=== PATIENT | male | born 1980 ===

== ENCOUNTER 2025-04-11 08:40 | Outpatient (AMB) | payer OTHER, SELFPAY ==
--- NOTE | 2025-04-11 08:42 | MHC.PC.OV ---
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 care Intake Note: patient here for new patient visit Hotel Security Officer Required: No Allergies No Known Allergies Allergy (Verified 04/11/25 09:04) Medication List - Last Reconciled 04/11/25 by Deng Wellington CNP No Known Home Meds Tobacco use date assessed: 04/11/25 Dental Screening Dental Screen Date: 04/11/25 Did you have a dental visit in the last 12 months?: Yes Did you have a dental problem in the last 6 months where you did not have access to dental care?: No Was dental information given to patient?: Patient has dentist HPI HPI Comments History of Present Illness Details 44-year-old male presents to establish care. He is not on prescription medication. He reports painless umbilical hernia for the past 2 years. Requests referral to a specialist for evaluation. Prior PCP? - Dr. Ortiz, [facility] Last office visit/CPE/labs - 1.5 year Acute issue(s) - None Past Medical History - Umbilical hernia Surgical History - Left inguinal hernia repair Family History - Denes Social History - Smokes 12 cigarettes daily, smoking hx x 15 years. Does not vape. Drinks 4-5 drinks of beers/liquor 4 days weekly. Smokes 3 joints daily 7 days weekly - Has been making healthy dietary choices. Exercises routinely. Generally sleep well Health maintenance - Last eye exam was 3 years ago. Declines ophthalmology referral - Last dental visit was 4 months ago. - Last Tdap maybe 5 years ago. - Has not been vaccinated for the flu this season; declines vaccination Specialists - None PFSH Surgical History (Updated 04/11/25 @ 08:54 by Jo-Ann Blanchard MA) History of hernia repair Social History Housing: House Patient Tobacco Use Status: Current everyday Tobacco user Tobacco use type: Cigarette Cigarettes Per Day: 12 Years Smoked: 15 e-Cigarette/Vaping Use: Never Used Second Hand Smoke Exposure: Yes Substance Use Type: Marijuana service: No Current occupational status: employed Current occupation: [employer] Current occupational exposures/hazards: No Cognitive needs: No Hearing needs: No Vision needs: No Questionnaire PHQ-9 Over the last 2 weeks, how often have you been bothered by any of the following problems? 1. Little interest or pleasure in doing things: not at all 2. Feeling down, depressed, or hopeless: not at all 3. Trouble falling or staying asleep, or sleeping too much: not at all 4. Feeling tired or having little energy: not at all 5. Poor appetite or overeating: not at all 6. Feeling bad about yourself - or that you are a failure or have let yourself or your family down: not at all 7. Trouble concentrating on things, such as reading the newspaper or watching television: not at all 8. Moving or speaking so slowly that other people could have noticed. Or the opposite - being so fidgety or restless that you have been moving around a lot more than usual: not at all 9. Thoughts that you would be better off or of hurting yourself in some way: not at all Total score: 0 Depression Screening Interpretation: Negative Depression Screening Done: Yes 76484 - PHQ-9 Billing: Yes Source: Developed by Drs. Baldemar Andrea, Almita Maxwell, Lei Coleman and colleagues, with an educational meli from [employer]. Thrive Questionnaire I am a: Patient What is your living situation today?: I have a steady place to live Within the past 12 months, did the food you bought not last and you didn't have the money to get more?: Often true Within the past 12 months, did you worry whether your food would run out before you got money to buy more?: Often true Do you have trouble paying for medicines?: Yes Do you have trouble getting transportation to medical appointments?: No Do you have trouble paying your heating and electricity bill?: Yes Do you have trouble taking care of your child, family member or friend?: No Do you have trouble with day-to-day activities such as bathing, preparing meals, shopping, managing finances, etc.?: No Are you currently unemployed and looking for a job?: No Are you interested in more education?: No Please select the resources that you would like help with: None Currently or been in a relationship where the following occur: No concerns reported THRIVE Score: 3 AUDIT C Alcohol Use Questionnaire (AUDIT-C) 1. How often do you have a drink containing alcohol?: 2-3 times a week 2. How many drinks containing alcohol do you have on a typical day when you are drinking?: 3 or 4 3. How often do you have six or more drinks on one occasion?: Weekly Total Score: 7 Score Reviewed/Action Taken: Yes RILEY-7 AMB Questionnaire RILEY-7 Date RILEY - 7 assessed: 04/11/25 Feeling nervous, anxious, or on edge: 0 = Not at all Not being able to stop or control worryin = Not at all Worrying too much about different things: 0 = Not at all Trouble relaxin = Not at all Being so restless that it is hard to sit still: 0 = Not at all Becoming easily annoyed or irritable: 3 = Nearly every day Feeling afraid as if something awful might happen: 0 = Not at all Total RILEY-7 score (0-4 normal; 5-9 mild; 10-14 moderate; 15-21 severe): 3 Source: Developed by Drs. Baldemar Andrea, Almita Maxwell, Lei Coleman and colleagues, with an educational meli from [employer]. RILEY-7 Assessment Billing RILEY-7 Assessment Tool: RILEY-7 Assessment 02068 Review of Systems Const Details: Denies chills, Denies fatigue, Denies fever(s), Denies headache(s) and Denies weakness HEENT Denies change in vision, Denies dizziness, Denies headache(s), Denies hearing loss, Denies nasal congestion, Denies sinus pain, Denies sinus pressure and Denies sore throat Card Denies chest pain, Denies lightheadedness, Denies dyspnea and Denies other (palpitations) Resp Denies cough, Denies dyspnea and Denies wheezing GI Denies abdominal pain, Denies melena, Denies hematochezia, Denies change in bowel habits, Denies dyspepsia and Denies nausea Denies hematuria and Denies dysuria Musc Denies abnormal gait, Denies myalgias, Denies arthralgias, Denies numbness and Denies tingling Skin/Breast Denies rash, Denies unusual bruising and Denies wounds Neuro Denies abnormal gait, Denies dizziness, Denies headache(s), Denies memory loss, Denies numbness, Denies Sensory deficit (Neuro), Denies tingling and Denies weakness Psych Denies anxiety, Denies depression and Denies memory loss Endo Denies cold intolerance, Denies fatigue, Denies heat intolerance, Denies polydipsia and Denies polyuria Danilo/Lymph Denies easy bleeding and Denies easy bruising Aller/Immun Denies wheezing Physical exam (Primary Care) Vital Signs: Last Vital Signs Temp 98.0 F 04/11/25 08:51 Pulse 79 04/11/25 08:51 Resp 16 04/11/25 08:51 BP 117/74 04/11/25 08:51 Pulse Ox 98 04/11/25 08:51 Oxygen Delivery Method Room Air 04/11/25 08:51 BMI result Body Mass Index 21.6 Tobacco/Smoking Status: Tobacco use Status Tobacco use date assessed 04/11/25 04/11/25 08:54 Patient Tobacco Use Status Current everyday Tobacco 04/11/25 08:54 Tobacco use type Cigarette 04/11/25 08:54 e-Cigarette/Vaping Use Never Used 04/11/25 08:54 PHQ-9: PHQ-9 Score PHQ-9: Total score 0 04/11/25 08:54 Depression Screening Interpretation: Negative Currently or been in a relationship where the following occur: No concerns reported Const Other: General: no acute distress, well developed, alert and awake Nutritional Appearance: well nourished Orientation/consciousness: patient oriented x3 HENMT Head: Yes normocephalic and Yes atraumatic Ears: hearing grossly normal bilaterally and TM's normal bilaterally General nose exam: Normal external nose present and Normal nares present Mouth: Normal oral and palatal mucosa present and moist mucous membranes Teeth and gingiva: dentition normal Throat: Yes oropharynx normal Eyes Pupils: Equal, round and reactive pupils present and Pupil accommodation reflex normal EOM: EOMs intact bilaterally Neck Neck: Yes normal visual inspection, Yes no lymphadenopathy and Yes trachea midline Thyroid: Thyroid normal Carotids: no bruits Lymphatic: no lymphadenopathy noted Chest Chest palpation & inspection: normal inspection of the chest Resp Effort & Inspection: normal respiratory effort Auscultation: clear to auscultation bilaterally Cardio Rate: regular rate Rhythm: regular rhythm Heart sounds: S1 normal heart sound present, S2 normal heart sound present, no gallops, no murmurs and no rubs Bruits: no abdominal aortic bruits and no carotid bruits GI Palpation (GI): No Abdominal aortic bruit present, Soft to palpation, nontender, No hepatosplenomegaly present and No Rebound tenderness present Auscultation: normal bowel sounds Soft painless mass, approximately half a ping-pong ball, above the umbilicus General: Yes no CVA tenderness Back/Spine/Pelvis Back: no CVA tenderness Cervical Spine: cervical ROM normal and No Cervical spine tenderness Thoracic/Lumbar Spine: thoraco-lumbar ROM normal, No pain with thoraco-lumbar ROM, No thoracic spinal tenderness and No lumbar spinal tenderness Skin General: warm and dry. Normal skin color. Normal skin turgor Lesions: no lesions Rashes: no rashes Trauma: no lacerations or abrasions Wounds: no wounds Nails: normal Neuro General: patient oriented x3, gait normal and CN's II-XI intact bilaterally Cranial nerves: Yes Equal, round and reactive pupils present Cognition (Neuro): normal cognition Gait exam (Neuro): Normal gait present Motor exam (neuro): 5/5 motor strength present throughout Sensory Exam: No Sensory deficit (Neuro) Deep tendon reflexes (DTR's): Right patellar reflex intensity grade: 2+ and Left patellar reflex intensity grade: 2+ Extrem General: Yes normal to inspection, No edema and No calf tenderness Psych Appearance: grossly normal Affect: normal affect Attitude: cooperative Thought process: Normal thought process present Coding Level of Care Code Est Pt Level 4 (88710) New Pt Prev Care 40-64y(22082) Diagnoses Normal physical examination, routine Z00.00 Umbilical hernia K42.9 Excessive drinking alcohol F10.10 Cigarette smoker F17.210 Laboratory tests ordered as part of a complete physical exam (CPE) Z00.00 Additional Codes RILEY-7 Assessment Billing - RILEY-7 Assessment Tool: RILEY-7 Assessment 52305 ([id number]) PHQ-9 - 21035 - PHQ-9 Billing: Yes ([id number]) Assessment & Plan Assessment & Plan (1) Normal physical examination, routine: Code(s): Z00.00 - Encounter for general adult medical examination without abnormal findings Category: Medical Plan: No significant functional limitation noted. Healthy diet and routine exercise encouraged. Perform lab work and follow-up for a telehealth visit for labs review in 2-4 weeks. Return sooner with symptoms or concerns. Verbalized understanding and agreed with the plan. (2) Umbilical hernia: Code(s): K42.9 - Umbilical hernia without obstruction or gangrene Category: Medical Plan: Soft painless mass, approximately half a ping-pong ball, above the umbilicus. Referred to general surgery. (3) Excessive drinking alcohol: Code(s): F10.10 - Alcohol abuse, uncomplicated Category: Social Hx Plan: He drinks 4-5 drinks of beers/liquor 4 days weekly. Instructed on the health risks and complications of excessive alcohol intake and advised to cut down or avoid alcohol consumption. No more than 2 drinks daily or 5 weekly. Declines referral to addiction medicine. Follow-up as needed. Verbalized understanding and agreed with the plan. (4) Cigarette smoker: Code(s): F17.210 - Nicotine dependence, cigarettes, uncomplicated Category: Social Hx Plan: He smokes 12 cigarettes daily and has been smoking for the past 15 years. Instructed on the health risks and complications of smoking cigarettes and cessation encouraged. Declines medication treatment for smoking cessation at this time. Follow-up as needed. Verbalized understanding and agreed with plan. (5) Laboratory tests ordered as part of a complete physical exam (CPE): Code(s): Z00.00 - Encounter for general adult medical examination without abnormal findings Category: Medical Plan: Fasting labs ordered as part of a complete physical exam. Advised to fast for at least 10 hours before getting labs drawn. May drink water Verbalized understanding and agreed with treatment plan. Orders: Orders Complete Blood Count Auto Diff Today Z00.00 - Encounter for general adult medical examination without abnormal findings Microalbumin, Random (w Creat) Today Z00.00 - Encounter for general adult medical examination without abnormal findings UA CC w/rflx Micro + Cult Today Z00.00 - Encounter for general adult medical examination without abnormal findings Comprehensive [place]. Panel Fast Today Z00.00 - Encounter for general adult medical examination without abnormal findings Lipid Panel Today Z00.00 - Encounter for general adult medical examination without abnormal findings PSA, Ultra Sensitive Today Z00.00 - Encounter for general adult medical examination without abnormal findings TSH reflex Free T4 Today Z00.00 - Encounter for general adult medical examination without abnormal findings Vitamin D 25-OH Total Today Z00.00 - Encounter for general adult medical examination without abnormal findings Referrals General Surgery Referral K42.9 - Umbilical hernia without obstruction or gangrene
[2025-04-11 08:51] VITALS: BP 117/74; PULSE 79; RESP 16; TEMP 36.7; O2SAT 98; BMI 21.6
--- OUTSIDE RECORDS SUMMARY | 2025-04-11 09:06 | XMS_ITS | Clinical Summary ---
Author Organization [facility] Address [address] [facility] [address] [place] [phone] Phone Care Team Providers Care Restaurant Area Manager Name Role Phone Dayton Ortiz MD Primary Care Provider [phone] Medications tadalafiL (CIALIS) 20 MG tablet Take 1 tablet (20 mg total) by mouth daily as needed. Self Pay Good Rx. DO NOT SUBMIT TO INSURANCE. Take one tab PO daily PRN 30 tablet 2 5 Active clomiPHENE citrate (CLOMID) 50 mg tablet Clomiphene Citrate 50 mg Capsule. Take 1 capsule PO Q Mon, Wed, Fri. Dispense 36, Refills 1 36 tablet 1 5 Active Encounters Date Type Department Care Team Description 02/07/2025 [facility]phone [facility] [address] [address] Ashley Grady PA 02/02/2025 [facility] [address] [address] Ashley Grady [place] 01/24/2025 Telephone [facility] [address] [address] Ashley Grady [place] 01/18/2025 [facility] [address] [address] Ashley Grady PA 01/16/2025 4:40 PM EDT [facility] [address] [address] Ashley Grady PA Male hypogonadism (Primary Dx) from Last 3 Months Social History Tobacco Use Types Packs/Day Years Used Date Smoking Tobacco: Never Assessed Education Answer Date Recorded Are you interested in more education? Not on anuradha e 05/17/2024 Are you concerned about learning? Not on file 05/17/2024 No 05/17/2024 No 05/17/2024 Digital Access Answer Date Recorded No 05/17/2024 No 05/17/2024 Reliable internet access at home? Not on file 05/17/2024 Device with a working camera? Not on file Sex and Gender Information Value Date Recorded Sex Assigned at Not on file Legal Sex Male 11:49 AM EST Gender Identity Not on file Sexual Orientation Not on file Plan of Treatment Health Maintenance Due Date Last Done Comments Adult Td,Tdap Booster 1981 LIPID PANEL 1981 DEPRESSION SCREENING 1993 SMOKING Hx and SMOKELESS TOB ACCO SCREENING 1994 HEPATITIS C SCREENING 12/28/1999 HIV ONE-TIME SCREENING (18-6 5 YEARS) 12/28/1999 INFLUENZA VACCINE (#1) 2025 COVID-19 VACCINE ( - 2024-2 6 season) 2025 HEPATITIS A VACCINES Aged Out No long er eligible based on patient's age to complete this topic HIB VACCINES Aged Out No longer eligi ble based on patient's age to complete this topic MENINGOCOCCAL VACCINES (ACWY) Aged Out No longer eligible based on patient's age to complete this topic MENINGOCOCCAL VACCINES (B) Aged Out N o longer eligible based on patient's age to complete this topic PNEUMOCOCCAL VACCINES (0-49 years) Aged Out No longer eligible based on patient's age to complete this topic Medical Devices Not on file Insurance CIGNA PPO CIGNA PPO CIGNA PPO CIGNA PPO CIGNA PPO CIGNA PPO CIGNA PPO Member Subscriber Plan / Payer (Ef fective 2022-Present) Name:JenaNayeli richardnt Relation to Subscriber:Self Name:JenaNayeli richardnt Payer ID:[id number] (NAIC) Type:PPO Address: [place] [phone] Care Teams Restaurant Area Manager Relationship Specialty Start Date End Date Dayton Ortiz MD [address] [place] [id number] PCP - General Internal Medicine 07/04/24 Additional Source Comments The information contained in this document represents components of the legal health record. It is not the complete legal health record.[facility]
== END 2025-04-11 09:22 | disposition home or self-care (01) ==
LOC: HO.HMCFM 08:41
PROVIDERS: PCP Nurse Practitioner Family; Visit Provider Nurse Practitioner Family
DX: Z00.00 Encounter for general adult medical examination without abnormal findings (principal); K42.9 Umbilical hernia without obstruction or gangrene; F10.10 Alcohol abuse, uncomplicated; F17.210 Nicotine dependence, cigarettes, uncomplicated

== ENCOUNTER → 2025-04-11 08:40 | Outpatient (BNVA) | payer OTHER, SELFPAY | PROVIDERS: PCP Nurse Practitioner Family; Visit Provider Nurse Practitioner Family | DX: Z00.00 Encounter for general adult medical examination without abnormal findings (principal); K42.9 Umbilical hernia without obstruction or gangrene; F10.10 Alcohol abuse, uncomplicated; F17.210 Nicotine dependence, cigarettes, uncomplicated | CPT/HCPCS: 96127 ==

== ENCOUNTER 2025-04-27 08:49 | Outpatient (REF) | payer OTHER, SELFPAY ==
--- OUTSIDE RECORDS SUMMARY | 2025-04-27 09:43 | XMS_ITS | Clinical Summary ---
Author Organization [facility] Address [address] [address] Phone Care Team Providers Care Case Picker Name Role Phone Dayton Ortiz MD Primary Care Provider [phone]- [phone] Medications tadalafiL (CIALIS) 20 MG tablet Take [...] Type Department Care Team Description 02/07/2025 Telephone [facility] [address] [address] Ashley Grady PA 02/02/2025 Telephone [facility] [address] [address] Ashley Grady PA from Last 3 Months Social History Tobacco [...] with a working camera? Not on file 11 / Sex and Gender Information Value Date Recorded [...] Subscriber Plan / Payer (Ef fective 2022-Present) Name:Elbert Espana Relation to Subscriber:Self Name:Elbert Espana Payer ID:[id number] ([facility]) Type:PPO Address: [place] [id number] CIGNA PPO CIGNA PPO CIGNA PPO Care Teams Case Picker Relationship Specialty Start Date End Date Dayton Ortiz MD [address] [place] [phone] PCP - General Internal Medicine 07/04/24 Additional Source Comments The information contained in this document represents components of the legal health record. It is not the complete legal health record.[facility]
[2025-04-27 11:21] LABS: MANUAL DIFF FLAG NO
[2025-04-27 11:25] LABS: Hematocrit 45.7 % (42.0-52.0); Hemoglobin 15.1 g/dl (14.0-18.0); Imm Gran Abs Auto 0.02 X10*3/uL (0.00-0.03); Imm Gran Pct Auto 0.3 % (0.0-0.4); Lymphocytes Absolute Auto 1.8 X10*3/uL (1.2-4.9); Mean Corpuscular HGB Conc 33.0 g/dl (31.0-36.0); Mean Corpuscular Hemoglobin 29.8 pg (27.0-33.0); Mean Corpuscular Volume 90.1 fL (80.0-98.0); NRBC Abs Auto 0.000 X10*3/uL (0.0-0.012); NRBC Pct Auto 0.0 /100WBC (0.0-0.2); Platelet Count 327 X10*3/uL (160-400); Red Blood Count 5.07 X10*6/uL (4.60-5.80); White Blood Count 7.1 X10*3/uL (4.8-10.8)
[2025-04-27 11:31] LABS: Appearance Urine Clear; Glucose Urine UA Negative (Negative); PH 6.0 (5.0-9.0); Specific Gravity - Urine 1.020 (1.005-1.025); UMIC TRIGGER UACC YES
[2025-04-27 11:54] LABS: Alanine Aminotransferase 21 U/L (0-40); Albumin Level 4.9 g/dL (3.5-5.0); Alkaline Phosphatase 63 U/L (39-117); Anion Gap 10 (12-20); Aspartate Amino Transferase 27 U/L (5-37); Blood Urea Nitrogen 14 mg/dL (9-16); Calcium 9.5 mg/dL (8.4-10.2); Carbon Dioxide 27 mmol/L (22-29); Chloride 105 mmol/L (96-108); Cholesterol 220 mg/dL (<200); Estimated Glomerular Filt Rate > 60; HDL Cholesterol 47 mg/dL (>40); Potassium 4.3 mmol/L (3.3-5.1); Sodium 138 mmol/L (135-145); Total Protein 7.6 g/dL (6.5-8.0); Triglycerides 71 mg/dL (<150)
[2025-04-27 12:09] LABS: Microalbum/Creatinine Ratio Ur 4.2 ug/mg cr (<30)
[2025-05-05 21:09] LABS: PSA, Ultra Sensitive 0.89 ng/mL
== END 2025-04-27 08:50 | disposition home or self-care (01) ==
LOC: HO.WFDLDS 08:49
PROVIDERS: Visit Provider Nurse Practitioner Family
DX: Z00.00 Encounter for general adult medical examination without abnormal findings (principal); Z12.5 Encounter for screening for malignant neoplasm of prostate; Z13.6 Encounter for screening for cardiovascular disorders
CPT/HCPCS: 36415; 80053; 80061; 81001; 82043; 82306; 82570; 84153; 84443; 85025

== ENCOUNTER 2025-05-05 15:31 | Outpatient (AMB) | payer OTHER, SELFPAY ==
--- NOTE | 2025-05-05 15:24 | MHC.PC.OV ---
Intake Visit Reasons: Tele 2-4 wks labs review Intake Note: patient here for 2-4 wks Telehealth for labs review Mechanic Helper Required: No Allergies No Known Allergies Allergy (Verified 05/05/25 15:25) Tobacco use date assessed: 05/05/25 Dental Screening Dental Screen Date: 05/05/25 Did you have a dental visit in the last 12 months?: Yes Did you have a dental problem in the last 6 months where you did not have access to dental care?: No Was dental information given to patient?: Patient has dentist HPI HPI Comments History of Present Illness Details 44-year-old male presents for a telehealth visit for review of recent lab results. He notes that he has been making healthy dietary choices. He does hiking, hunting, and fishing for exercise. He has been cutting down or drinking in the past month and has been drinking between 3-6 beers/mixed drinks 3-4 days weekly. He used to drink more. He offers no complaints and denies acute symptoms at this time. [facility] Surgical History (Updated 04/11/25 @ 08:54 by CHANELL Jaimes) History of hernia repair Social History Housing: House Patient Tobacco Use Status: Current everyday Tobacco user Tobacco use type: Cigarette Cigarettes Per Day: 12 Years Smoked: 15 e-Cigarette/Vaping Use: Never Used Second Hand Smoke Exposure: Yes Substance Use Type: Marijuana service: No Current occupational status: employed Current occupation: [employer] Current occupational exposures/hazards: No Cognitive needs: No Hearing needs: No Vision needs: No Questionnaire Thrive Questionnaire Date Thrive assessed: 04/11/25 I am a: Patient What is your living situation today?: I have a steady place to live Within the past 12 months, did the food you bought not last and you didn't have the money to get more?: Often true Within the past 12 months, did you worry whether your food would run out before you got money to buy more?: Often true Do you have trouble paying for medicines?: Yes Do you have trouble getting transportation to medical appointments?: No Do you have trouble paying your heating and electricity bill?: Yes Do you have trouble taking care of your child, family member or friend?: No Do you have trouble with day-to-day activities such as bathing, preparing meals, shopping, managing finances, etc.?: No Are you currently unemployed and looking for a job?: No Are you interested in more education?: No Please select the resources that you would like help with: None Currently or been in a relationship where the following occur: No concerns reported THRIVE Score: 3 RILEY-7 AMB Questionnaire RILEY-7 Date RILEY - 7 assessed: 04/11/25 Source: Developed by Drs. Baldemar Andrea, Almita Maxwell, Lei Coleman and colleagues, with an educational meli from [employer]. Review of Systems Const Details: Denies chills, Denies fatigue, Denies fever(s), Denies headache(s) and Denies weakness Cardiac Denies chest pain, Denies claudication, Denies leg edema, Denies lightheadedness, Denies palpitations, Denies dyspnea, Denies dyspnea on exertion, Denies orthopnea and Denies other (Loss of consciousness) Resp Denies cough, Denies excessive phlegm production, Denies dyspnea, Denies dyspnea on exertion, Denies snoring and Denies wheezing Physical exam (Primary Care) Tobacco/Smoking Status: Tobacco use Status Tobacco use date assessed 05/05/25 05/05/25 15:26 Patient Tobacco Use Status Current everyday Tobacco 05/05/25 15:25 Tobacco use type Cigarette 05/05/25 15:25 e-Cigarette/Vaping Use Never Used 05/05/25 15:25 Thrive Assessment: Date of Thrive Assessment Date Thrive assessed 04/11/25 05/05/25 15:25 Currently or been in a relationship where the following occur: No concerns reported Const Other: Patient is a+ox4 Telehealth Telehealth Telehealth Platform: Telephone Location of provider rendering services: practice address Location of patient: address on file Patient Identification confirmed using: Name, : Yes Telehealth method: voice only Patient verbally consented to treatment: Yes Patient verbally consented to billing insurance company: Yes Patient informed of any privacy concerns related to visit: Yes Coding Level of Care Code Tele Est Pt Level 3 (90692) Diagnoses Hypercholesterolemia E78.00 Elevated fasting glucose R73.01 Time Spent (min) 15 Assessment & Plan Assessment & Plan (1) Hypercholesterolemia: Code(s): E78.00 - Pure hypercholesterolemia, unspecified Category: Medical Plan: Recent total cholesterol and LDL levels are elevated, 220 and 159 respectively. Advised to limit foods high in saturated fat and avoid foods high in trans fat. Routine exercise encouraged. Encouraged to cut down or avoid excessive alcohol intake. No more than 2 drinks daily or 5 weekly. Fast for 10-12 hours, may drink water, and perform lipid panel blood work a few days before next visit. Declines referral to [facility] comprehensive care for execessive drinking. Follow-up for transfer of care, hypercholesterolemia, and elevated fasting glucose in 2 months. Return sooner with symptoms or concerns. Verbalized understanding and agreed with the plan. (2) Elevated fasting glucose: Code(s): R73.01 - Impaired fasting glucose Category: Medical Plan: Recent fasting glucose is elevated, 111. Diet and excessive alcohol use maybe contributory. Healthy diet encouraged. Encouraged to cut down or avoid drinking alcohol. Will recheck fasting glucose. Verbalized understanding and agreed with the plan. Orders: Orders Lipid Panel 2 Months E78.00 - Pure hypercholesterolemia, unspecified Glucose Fasting 2 Months R73.01 - Impaired fasting glucose
--- OUTSIDE RECORDS SUMMARY | 2025-05-05 16:35 | XMS_ITS | Clinical Summary ---
Author Organization [facility] Address [address] [address] Phone Care Team Providers Care Human Resources File Clerk Name Role Phone Dayton Ortiz MD Primary Care Provider +1- [phone] Medications tadalafiL (CIALIS) 20 MG tablet Take [...] Type Department Care Team Description 02/07/[address] [facility] [address] [address] Ashley Grady PA 02/02/[address] [facility] [address] [address] Ashley Grady PA from Last 3 Months [...] Relation to Subscriber:Self Name:Elbert Espana Payer ID:[id number] ([facility]) Type:PPO Address: [place] [id number] CIGNA PPO CIGNA PPO CIGNA PPO Care Teams Human Resources File Clerk Relationship Specialty Start Date End Date Dayton Ortiz MD [address] [place] [address] PCP - General Internal Medicine 07/04/24 Additional Source Comments The information contained in this document represents components of the legal health record. It is not the complete legal health record.[facility]
--- OUTSIDE RECORDS SUMMARY | 2025-05-05 16:35 | XMS_ITS | Data Portability ---
Author Organization [facility] Address [address] [place] [address] Care Team Providers Care Email Manager Name Role Phone SALMAYENYKARY Primary Care Provider Assessment No assessment recorded. Plan of Treatment Reminders Order Date Submit Date Provider Last Modified By Organization Details Last Modified Time Details Appointments None recorded. Lab None recorded. Referral orthopedic spine surgeon referral - s/p low back twisting injury this morning while pulling water hose , very limited ROM, spasms with movement , decreased sensation in lower extremities 2023 024 [email or web address] [facility], [address], [place], [address], 4 14:43:44 Procedures None recorded. Surgeries None recorded. Imaging XR, lumbosacral spine, 2 or 3 view 2023 024 [facility], [address] [place], [address], 4 10:29:41 Medication Orders cyclobenzap rine 10 mg tablet 2023 024 [facility] #[id number], [address] [place], [address], 4 09:33:50 naproxen 500 mg tablet 2023 024 [facility] #[id number], [address] [place], [address], 4 09:33:52 Patient TargetsNo targets recorded. Patient Instructions Encounter Date Encounter Id Patient Instructions Last Modified By Organization Details Last Modified Time 03/07/2024 [id number] back strain: car e instructions paulino Not available 03/07/2024 10:04:07 back care and preventing injuries: care instructions paulino Not available 03/07/2024 09:10:03 Reason for Referral Orthopedic Spine Surgeon Ref erral for Lower back injury s/p low back twisting injury this morning while pulling water hose , very limited ROM, spasms with movement , decreased sensation in lower extremities Referring Physician: Renae Olivarez, Urgent Care, Encounter Date: 03/07/2024 Results Created Date Observation Date Name Description Value Unit Range Abnormal Flag Note LastModifiedBy Organization Detail LastModifiedTime 03/07/20 24 03/07/2024 XR, lumbo sacra l spine , 2 or 3 view No observ ation record ed. [email or web address] [facility] [address] [facility], [place], [address], 03/07/2024 10:59:53 Result Notes None recorded. Problems Name Problem SNOMED Code Status Onset Date Resolution Date Notes Provider Name and Address Organization Details Recorded Time Acute low back pain 276893110 Active 024 Renae Olivarez NP [address] [facility] [place], [address] , [place] - [facility] 03/07/2024 09:09:31 Lower back injury 439801898 Active 024 [facility] [address] [facility] [place], [address] , [place] - [facility] 03/07/2024 09:10:01 Problem Notes None recorded. Procedures Surgical History Date Name Laterality Status Provider Name and Address Organization Details Recorded Time 06/29/1989 hernia repair completed Bola Ibrahim [place] - [facility] 03/07/2024 08:52:30 Imaging Results None recorded. Procedure Notes None recorded. Medical Equipment None Reported. Allergies No known drug allergies Medications Name Sig Start Date Stop Date Status Note LastModified by Organization Details LastModified Time cyclobenzaprine 10 mg tablet Take 1 tablet 3 times a day by oral route as needed for 10 days, for spasm. 2023 active Not Available Not Available Not Avai lable naproxen 500 mg tablet Take 1 tablet twice a day by oral route as needed for 10 days, for pain. 2023 active Not Available Not Available Not Avai lable Vitals Date Recorded Body height Body mass index (BMI) Body weight Oxygen saturation Oxygen saturation in Arterial blood by Pulse oximetry Heart rate Pain severity - 0-10 verbal numeric rating [Score] - Reported Body temperature Respiratory rate Systolic And Diastolic Provider Name and Address Organization Details Last Updated DateTime 4 182.88 cm 21.7 kg/m2 36044.7 8 g 100 % 100 % 71 /min 10 97.8 [degF] 16 /min 125/83 mm[Hg] Bola HENDERSON [facility] 08:57:37 Social History Question Answer Notes LastModified by [facility] Details LastModified Time Tobacco Smoking Status Current Every Day Smoker Bola werner [facility] 03/07/2024 08:52:12 Have You Had A Flu Shot This Season? No Information not available 03/07/2024 Have You Recently Traveled Abroad? No Information not available 03/07/2024 Sex: Unknown Functional Status Question Answer Note LastModified by [facility] Details LastModified Time Do you use any illicit or recreational drugs? No Information not available 03/07/2024 Do you or have you ever used any other forms of tobacco or nicotine? No Information not available 03/07/2024 What is your level of alcohol consumption? Occasional Information not available 03/07/2024 Mental Status None recorded. Family History Relationship Description Onset Age of this Age Resolved Age Notes LastModified by Organization Details LastModified Time Father No current problems or disability Not available 03/07 08:51:55 Mother No current problems or disability Not available 03/07 08:51:55 Medical History No medical history recorded. Past Encounters Encounter ID Performer Location Encounter Start Date Encounter Closed Date Diagnosis/Indication Diagnosis SNOMED-CT Code Diagnosis ICD10 Code Diagnosis IMO Codes Diagnosis [place] [id number] [place] [address] [address] 03/07/2024 08:48:21 03/07/2024 09:43:29 Acute low back pain 068586093 M54.50 You are going to be treated for back pain The following are recommenda tions to help with your symptoms and recovery:1 . Drink Plenty of fluids - Stay hydrated2. I recommend starting a Probiotic - I recommend Florastor3 . If you take Azo - this will help the burning and urgency feeling - just be aware it will turn your urine bright yellow. I would not hesitate to be seen again if you develop:1. Severe Back Pain2. Abdominal Pain3. Nausea and Vomiting4. Vaginal Discharge or Bleeding5. Fever > 101.0.For your back :Do the exercises that I gave you. The following are my recommenda tions to help with your symptoms:1 . Heating pad to the back of the back2. Stretch your back and hip regularly3 . Try to sleep in flat position to not aggravate your back .4. It is ok to Take Tylenol and ibuprofen with what I gave you5. I advise applying some topical Aspircream I would give this a solid 1-2 weeks to start to improve. If at this time you still aren't feeling better. I would suggest a follow up visit. Please go immediatel y to the Emergency room if you develop any:1. Shortness of breath2. Coughing up blood3. Significan t chest pain4. or Dizziness. light headedness If a urine culture was sent out to the lab for you we should get the results back within 4 days. This will be able to prove that your symptoms are caused by a UTI and if positive we will prescribe an antibiotic Thank you for using [facility] - please don't hesistate to call our office if you have any questions or concerns. Lower back injury 586079 005 S39.92XA Health Concerns Section Related Observation LastModified by Organization Detai ls LastModified Time None Recorded Concern Status LastModified by Organization Details LastModified Time None Recorded Advance Directives Directive None Recorded Payers Insurance Date Sequence Insurance Name Policy Number Policy Falk Covered Member ID Falk Member ID Guarantor Name 08/03/2024 SELECTIVE INSURANCE [facility] Elbert Puza 03/07/2024 [employer] WORK[employer] COMP [id number] [facility] Elbert Puza 03/07/2024 GENERIC WORKER'S COMP (MOVED TO HOLD) [id number] [facility] Elbert Espana Notes Date Note Type Note Provider Name and Address Organization Details Recorded Time 03/07/2024 text/html Back Pain/Injury UCReported by Patient 43 YOM who states that while at work this morning he was rolling up a hose and felt a pinch iin his lower back on both side radiating down his legs . Thought nothing of it at the time but as the day progressed the pain became worse to the point where he is unable to stand up straight and his back feels like its on fire. Pt states pain mainly shoots up the back with some pressure going down the legs. but able to ambulate with the back recumbent has not taken any meds yet . Pain is at 10/10 with movement. denies changes in bowel and bladder Renae Olivarez NP [address] [place], [address], [place] - [facility] 03/07/2024 10:04:28
== END 2025-05-05 17:03 | disposition home or self-care (01) ==
LOC: HO.HMCFM 15:31
PROVIDERS: PCP Nurse Practitioner Family; Visit Provider Nurse Practitioner Family
DX: E78.00 Pure hypercholesterolemia, unspecified (principal); R73.01 Impaired fasting glucose

== ENCOUNTER 2025-05-17 09:54 | Outpatient (AMB) | payer OTHER, SELFPAY ==
--- NOTE | 2025-05-17 09:55 | MHC.OFFVIS ---
Vital Signs 05/17/25 09:56 Height 6 ft Weight 153 lb BMI 20.7 BP 121/67 Blood Pressure Location Rt brachial Position Sitting Pulse 78 Intake Visit Reasons: Umbilical hernia Intake Note: Patient referred by PCP Dr. Wellington, for assessment of Umbilical hernia. Present for 3yrs. Hx of Lt groin hernia repair as a child age 6-7. Patient c/o: bulging out but is able to push it back in. Pain and discomfort sometimes when has to push it back in. No imaging Restoration Officer Required: No Accompanied by: Self / Same As Patient Allergies No Known Allergies Allergy (Verified 05/17/25 10:02) Medication List - Last Reconciled 05/17/25 by Royal Castillo MD multivitamin (Daily Multi-Vitamin tablet) 1 tab PO DAILY HPI Comments Details: The patient is a 44-year-old male presenting with a ventral hernia. The hernia has been present for approximately three years, located near the umbilicus, and becomes more prominent with activities such as coughing. The patient reports being able to manually reduce the hernia at times. 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 He has a history of a left groin hernia repair during childhood and no other significant surgical history. [facility] Surgical History History of hernia repair Social History Housing: House Patient Tobacco Use Status: Current everyday Tobacco user Tobacco use type: Cigarette Cigarettes Per Day: 12 Years Smoked: 15 e-Cigarette/Vaping Use: Never Used Second Hand Smoke Exposure: Yes Substance Use Type: Marijuana service: No Current occupational status: employed Current occupation: [employer] Current occupational exposures/hazards: No Cognitive needs: No Hearing needs: No Vision needs: No Review of Systems Const All systems reviewed & are unremarkable except as noted in HPI and below Physical Exam Vital Signs: Last Vital Signs Pulse 78 05/17/25 09:56 BP 121/67 05/17/25 09:56 BMI result Body Mass Index 20.7 Const Orientation/consciousness: oriented to person, oriented to place and oriented to time HEENT Head: Yes normal to inspection Ears: hearing grossly normal bilaterally Eyes General: appearance normal, both eyes and all related structures Pupils: Equal, round and reactive pupils present EOM: EOMs intact bilaterally Neck Neck: Yes normal visual inspection Chest Chest palpation & inspection: normal inspection of the chest Resp Effort & Inspection: normal respiratory effort and able to speak in complete sentences Cardio Rate: regular rate Rhythm: regular rhythm GI Other: Soft scalp a thin nontender nondistended. No evidence of hepatosplenomegaly. No scars appreciated. Soft 2-3 cm midline supraumbilical mass, reducible. No corresponding skin change. No erythema or edema. Back/Spine/Pelvis Cervical Spine: normal cervical lordosis Thoracic/Lumbar Spine: thoracic and lumbar spine normal to inspection Skin General skin exam: no rashes or lesions noted Neuro General: oriented to person, oriented to place and oriented to time Cranial nerves: Yes Equal, round and reactive pupils present Extrem General: Yes normal to inspection Psych Appearance: grossly normal and well kempt Mental Status: mental status grossly normal Assessment & Plan Assessment & Plan (1) Ventral hernia: Code(s): K43.9 - Ventral hernia without obstruction or gangrene Category: Medical Plan: The patient has a ventral hernia located near the umbilicus, which has been present for approximately three years. Surgical repair is recommended to prevent further complications, utilizing minimally invasive techniques with small incisions and a laparoscopic approach to place a mesh patch internally. The risks of surgery, including bleeding, infection, and recurrence, were discussed, and the patient expressed a desire to proceed with the surgical intervention. Coding Level of Care Code New Pt Level 3 (63537) Diagnoses Ventral hernia K43.9 Time Spent (min) 30 Comment Patient visit record review and coordination of care.
[2025-05-17 09:56] VITALS: BP 121/67; PULSE 78; BMI 20.7
--- OUTSIDE RECORDS SUMMARY | 2025-05-17 18:32 | XMS_ITS | Clinical Summary ---
Author Organization [facility] Address [address] [address] Phone Care Team Providers Care Tail End Rider Name Role Phone Dayton Ortiz MD Primary Care Provider +1- [phone] Medications tadalafiL (CIALIS) 20 MG tablet Take [...] Refills 1 36 tablet 1 5 Active Social History Tobacco Use Types Packs/Day Years [...] on patient's age to complete this topic IPV VACCINES Aged Out No longer eligi ble [...] PPO CIGNA PPO CIGNA PPO [place] [id number] CIGNA PPO CIGNA PPO CIGNA PPO Care Teams Tail End Rider Relationship Specialty Start Date End Date Dayton Ortiz MD [address] [place] [address] PCP - General Internal Medicine 07/04/24 Additional Source Comments The information contained in this document represents components of the legal health record. It is not the complete legal health record.[facility]
--- OUTSIDE RECORDS SUMMARY | 2025-05-17 18:32 | XMS_ITS | Data Portability ---
Author Organization [facility] Address [address] [place] [address] Care Team Providers Care Filterer Name Role Phone SALMAYENYKARY Primary Care Provider [...] sensation in lower extremities 2023 024 [email or web address] [facility], [address], [address], [place], [address], 4 14:43:44 Procedures None recorded. Surgeries None recorded. Imaging XR, lumbosacral spine, 2 or 3 view 2023 024 [facility], [address] [place], [address], 4 10:29:41 Medication Orders cyclobenzap rine 10 mg tablet 2023 024 [facility]acy #[id number], [address] [place], [address], 4 09:33:50 naproxen 500 mg tablet 2023 024 [facility] #[id number], [address] [place], [address], 4 09:33:52 Patient TargetsNo targets recorded. Patient Instructions Encounter Date Encounter Id Patient Instructions Last Modified By Organization Details Last Modified Time 03/07/2024 [id number] back strain: car e instructions paulino Not available 03/07/2024 10:04:07 back care and preventing injuries: care instructions paluino Not available 03/07/2024 09:10:03 Reason for Referral [...] view No observ ation record ed. [email or web address] [facility] [address] [facility], [place], [address], 03/07/2024 10:59:53 Result Notes None recorded. Problems Name Problem SNOMED Code Status Onset Date Resolution Date Notes Provider Name and Address Organization Details Recorded Time Acute low back pain 027397991 Active 024 Renae Olivarez NP 423 [facility] [place], [address] , [place] - [facility] 03/07/2024 09:09:31 Lower back injury 352952576 Active 024 Ren[facility]arez NP [address] [facility] [place], [address] , [place] - [facility] 03/07/2024 09:10:01 [...] Updated DateTime 4 182.88 cm 21.7 kg/m2 63065.7 8 g 100 % 100 % 71 /min 10 97.8 [degF] 16 /min 125/83 mm[Hg] Bola HENDERSON [facility] 08:57:37 Social History Question Answer Notes LastModified by [facility] Details LastModified Time Tobacco Smoking Status Current Every Day Smoker Bola werner [email or web address] 03/07/2024 08:52:12 Have You Had A Flu Shot This Season? No Information not available 03/07/2024 Have You Recently Traveled Abroad? No Information not available 03/07/2024 Sex: Unknown Functional Status Question Answer Note LastModified by [facility] Details LastModified Time Do you use any [...] ICD10 Code Diagnosis IMO Codes Diagnosis Note [id number] [place] [address] [address] 03/07/2024 08:48:21 03/07/2024 09:43:29 Acute low back pain 198683852 M54.50 You are going to be treated [...] prescribe an antibiotic Thank you for using [email or web address] - please don't hesistate to call our office if you have any questions or concerns. Lower back injury 444471 005 S39.92XA Health Concerns Section Related Observation LastModified by Organization Detai ls LastModified Time None Recorded Concern Status LastModified by Organization Details LastModified Time None Recorded Advance Directives Directive None Recorded Payers Insurance Date Sequence Insurance Name Policy Number Policy Falk Covered Member ID Falk Member ID Guarantor Name 08/03/2024 SELECTIVE INSURANCE [facility] Elbert Puza 03/07/2024 [employer] WORK[employer] COMP [id number] [facility] Elbert Puza 03/07/2024 GENERIC WORKER'S COMP (MOVED TO HOLD) [id number] [facility] Elbert Espana Notes Date Note [...] Renae Olivarez NP [address] [place], [address], [place] - [facility] 03/07/2024 10:04:28
== END 2025-05-17 10:15 | disposition home or self-care (01) ==
LOC: HO.HGS 09:55
PROVIDERS: PCP Nurse Practitioner Family; Visit Provider Surgery
DX: K43.9 Ventral hernia without obstruction or gangrene (principal)
CPT/HCPCS: 99204

== ENCOUNTER 2025-06-05 06:10 | Day surgery (SDC) | payer OTHER, SELFPAY ==
--- OUTSIDE RECORDS SUMMARY | 2025-05-22 17:19 | XMS_ITS | Clinical Summary ---
Author Organization [facility] Address [address] [address] Phone Care Team Providers Care Naval Architect Specialist Name Role Phone Dayton Ortiz MD Primary Care Provider +1- [phone] Medications tadalafiL (CIALIS) 20 MG tablet Take [...] PPO CIGNA PPO CIGNA PPO CIGNA PPO Care Teams Naval Architect Specialist Relationship Specialty Start Date End Date Dayton Ortiz MD [address] [place] [address] PCP - General Internal Medicine 07/04/24 Additional Source Comments The information contained in this document represents components of the legal health record. It is not the complete legal health record.[facility]
--- NOTE | 2025-05-31 09:44 | P.CONAN_ITS ---
Documented by User: Edyta Lott NP 05/31/25 09:45 HPI - Anesthesia Eval Consult details Narrative: 44yo M for Repair Hernia Lap Ventral Reducible with mesh PMFSH Active Problems Active Problems: All Active Problems Ventral hernia (Acute) Elevated fasting glucose (Acute) Hypercholesterolemia (Acute) Cigarette smoker (Acute) Excessive drinking alcohol (Acute) Umbilical hernia (Acute) Laboratory tests ordered as part of a complete physical exam (CPE) (Acute) Normal physical examination, routine (Acute) Surgical History Surgical History History of hernia repair Social History Social History Housing: House Patient Tobacco Use Status: Current everyday Tobacco user Tobacco use type: Cigarette Cigarettes Per Day: 12 Years Smoked: 15 e-Cigarette/Vaping Use: Never Used Second Hand Smoke Exposure: Yes Substance Use Type: Marijuana Have you been hit, kicked, punched, or otherwise hurt by someone within the past year? If so, by whom?: No Are you DNR?: No Advance Directives: No Advance Directives Information Provided: Yes service: No Current occupational status: employed Current occupation: [employer] Current occupational exposures/hazards: No Cognitive needs: No Hearing needs: No Vision needs: No Meds Allergies Allergy/AdvReac Type Severity Reaction Status Date / Time No Known Allergies Allergy Verified 05/17/25 10:02 Home Medications ?Medication ?Instructions ?Recorded ?Confirmed ?Last Taken ?Type multivitamin (Daily Multi-Vitamin 1 tab PO DAILY 05/1706/01/25 06/04/25 History tablet) Exam Pertinent Lab Results Pertinent Lab Results: Laboratory Tests 04/27/25 04/27/25 08:37 08:51 WBC 7.1 Hgb 15.1 Hct 45.7 Plt Count 327 Sodium 138 Potassium 4.3 Chloride 105 Carbon Dioxide 27 BUN 14 Creatinine 0.82 Assessment and Plan Assessment Anesthesia Assessment: Chart Reviewed Documented by User: Christina Catalan MD 06/05/25 07:11 [facility] Family History Family history of problems with anesthesia: No Surgical History Surgical History History of hernia repair History of Problems with Anesthesia: No Social History Social History Housing: House Patient Tobacco Use Status: Current everyday Tobacco user Tobacco use type: Cigarette Cigarettes Per Day: 12 Years Smoked: 15 e-Cigarette/Vaping Use: Never Used Second Hand Smoke Exposure: Yes Substance Use Type: Marijuana Have you been hit, kicked, punched, or otherwise hurt by someone within the past year? If so, by whom?: No Are you DNR?: No Advance Directives: No Advance Directives Information Provided: Yes service: No Current occupational status: employed Current occupation: [employer] Current occupational exposures/hazards: No Cognitive needs: No Hearing needs: No Vision needs: No Meds Allergies Allergy/AdvReac Type Severity Reaction Status Date / Time No Known Allergies Allergy Verified 05/17/25 10:02 Home Medications ?Medication ?Instructions ?Recorded ?Confirmed ?Last Taken ?Type multivitamin (Daily Multi-Vitamin 1 tab PO DAILY 05/1706/01/25 06/04/25 History tablet) Exam Airway Mallampati Class: II TM Dist: >3cm Neck ROM: Full Heart: rrr Lungs: cta Assessment and Plan Assessment Anesthesia Assessment: Anesthesia Plan Discussed Final Anesthetic Review Family History of Problems with Anesthesia: No History of Problems with Anesthesia: No NPO: Yes ASA Class: II Final Preanesthetic Review: No Changes in Pt Med Stat, Meds/Allgs Chart Reviewed and Consent Obtained/Reviewed Patient Risk: Low Procedure Risk: Low Anesthetic Plan Anesthetic Plan: GA Disposition: Standard PACU
[2025-06-01 16:41] VITALS: BMI 20.7
[2025-06-05 06:37] VITALS: BP 130/75; PULSE 85; RESP 18; TEMP 36.1; O2SAT 97; BMI 21.3
[2025-06-05] MEDS: Lactated Ringers 1,000 ML 100 ML IVCONT (06:45)
--- NOTE | 2025-06-05 07:03 | PHA.MEDREC ---
Pharmacy Consult ? Medication Reconciliation Pharmacy has reviewed the medication reconciliation completed by nursing.
--- NOTE | 2025-06-05 07:16 | PC.NURSE ---
dr barone hold [facility]
--- NOTE | 2025-06-05 08:18 | W.PM.OPN ---
Operative Note Operative Note Date of Service: 06/05/25 Narrative: Preoperative diagnosis: incarcerated ventral periumbilical hernia Postoperative diagnoses: same Procedure performed: exploratory laparoscopy and repair of ventral hernia with mesh. Surgeon: Royal Castillo MD Ceramic Tile Installation Helper: SANTIAGO Oconnor Findings: approximate 3 cm fascial defect in the region of the umbilicus containing incarcerated preperitoneal fatty tissue The patient is brought to the operating room and placed supine on the operating table. The arms and legs percussion appropriately and Venodyne boots were cycled. General anesthesia was initiated the patient's abdomen was prepped in the standard sterile fashion. Approximately 20 cc of Marcaine with epinephrine were then infused and soft tissue in the left subcostal region of the patient's abdomen. Through this locally anesthetize site a stab incision was created and a 5 mm trocar port was placed into the abdomen with the optical axis technique. CO2 gas was insufflated. Once the intra-abdominal pressures reached approximately 15 mmHg the intra-abdominal contents were surveyed. There was no evidence of injury from placement of either the local anesthetic or laparoscopic trocar port. Two more ports were then placed in the right subcostal region and the left lower quadrant. There were a 12 mm port and 5 mm port respectively. We then turned our attention to the periumbilical region. It is evident that the patient had hernia without involvement in any intra-abdominal structures. Examination of the area around the region of his umbilicus revealed an approximate 3 cm round fascial defect in the periumbilical area. No other fascial defects were encountered. For repair we chose an 8 cm round Ventralex mesh. It was dipped and vancomycin irrigation. The straps were cut at the base and a long Polysorb tie was affixed to the center of the strap Kristi. It was then delivered into the patient's abdominal cavity. An Endoclose needle was passed through the center of the fascial defect use cigarettes for long time. This was then used to. She had the mesh up to the anterior abdominal wall. The mesh was circumferentially tacked with a capture device. All the tacks were deeply placed with no folding wrinkling kinking or migration of the mesh. Final laparoscopic surveillance revealed no evidence of hemorrhage or visceral injury. The pneumoperitoneum was released the trocar ports were removed without difficulty. All the skin incisions were closed with 4-0 Monocryl in a buried subcuticular fashion. Steri-Strips and sterile occlusive dressings were applied. The patient tolerated procedure well, was recovered from anesthesia and taken to the recovery room in good condition. The sponge instrument needle counts were correct in the case and I discussed that the cells case with the patient afterward.
[2025-06-05 08:24] VITALS: BP 146/87; PULSE 70; RESP 15; TEMP 37; O2SAT 100
[2025-06-05 08:29] VITALS: BP 104/69; PULSE 71; RESP 16; O2SAT 100
[2025-06-05 08:34] VITALS: BP 126/75; PULSE 74; RESP 16; O2SAT 100
[2025-06-05 08:39] VITALS: BP 121/75; PULSE 65; RESP 16; O2SAT 97
[2025-06-05 08:54] VITALS: BP 113/86; PULSE 67; RESP 16; TEMP 36.6; O2SAT 99
== END 2025-06-05 09:35 | disposition home or self-care (01) ==
LOC: HO.SSS 06:11 → HO.SSSA 08:34
PROVIDERS: Visit Provider Surgery
PROC: (CPT 49592; principal; 2025-06-05 07:30)
DX: K43.6 Other and unspecified ventral hernia with obstruction, without gangrene (principal); Z79.899 Other long term (current) drug therapy; Z98.890 Other specified postprocedural states; F17.210 Nicotine dependence, cigarettes, uncomplicated
CPT/HCPCS: 49592; C1781; C1889; J0131; J0690; J1100; J1171; J1650; J2003; J2250; J2405; J2704; J3010; J3374

== ENCOUNTER → 2025-06-05 06:16 | Outpatient (BNV) | payer OTHER, SELFPAY | PROVIDERS: Admitting Provider Surgery; Visit Provider Surgery | DX: K43.6 Other and unspecified ventral hernia with obstruction, without gangrene (principal) | CPT/HCPCS: 49594 ==

== ENCOUNTER 2025-06-13 13:03 | Outpatient (AMB) | payer OTHER, SELFPAY ==
--- NOTE | 2025-06-13 13:05 | MHC.OFFVIS ---
Vital Signs 06/13/25 13:06 Height 6 ft Weight 150 lb 6 oz BMI 20.4 BP 116/66 Blood Pressure Location Rt brachial Position Sitting Pulse 80 Intake Visit Reasons: s/p lap ventral hernia w/mesh Intake Note: Patient presents for follow-up status post exploratory laparoscopy and repair of ventral hernia with mesh. Pt c/o; reports he feels bloated and constipated, all inciison well healed, he still has to do the pillow trick when coughing. Environmental Geologist Required: No Accompanied by: Self / Same As Patient Allergies No Known Allergies Allergy (Verified 06/13/25 13:14) HPI HPI s/p lap ventral hernia w/mesh: Details: Doing okay experiencing some pain but mostly feeling bloated, having some constipation. States that he goes normally twice a day, now has been just daily but has been passing gas. He has been taking the stool softener but also take Gas-X because he feels bloated. He denies any nausea or vomiting. Denies fevers or chills states he still has a lot of pain when coughing, has been applying pressure to his abdomen [facility] Surgical History (Updated 06/13/25 @ 13:28 by Rolando Cummins PA-C) History of ventral hernia repair (~06/05/25) History of hernia repair Social History Housing: House Patient Tobacco Use Status: Current everyday Tobacco user Tobacco use type: Cigarette Cigarettes Per Day: 12 Years Smoked: 15 e-Cigarette/Vaping Use: Never Used Second Hand Smoke Exposure: Yes Substance Use Type: Marijuana service: No Current occupational status: employed Current occupation: [employer] Current occupational exposures/hazards: No Cognitive needs: No Hearing needs: No Vision needs: No Physical Exam Vital Signs: Last Vital Signs Pulse 80 06/13/25 13:06 BP 116/66 06/13/25 13:06 BMI result Body Mass Index 20.4 Const General: comfortable and no acute distress Orientation/consciousness: patient oriented x3 GI Other: Incision sight dressings in place Inspection: Yes distended (Mild) Palpation (GI): Soft to palpation, Tenderness to palpation present (GI) periumbilically and no guarding Percussion: Yes normal to percussion Neuro General: patient oriented x3 Assessment & Plan Assessment & Plan (1) History of ventral hernia repair: Onset Date: ~06/05/25 Comment: exploratory laparoscopy and repair of ventral hernia with mesh- Dr. Jonathan PAIGE FACS Code(s): Z98.890 - Other specified postprocedural states; Z87.19 - Personal history of other diseases of the digestive system Category: Medical Plan 44-year-old male s/p laparoscopic ventral hernia repair with mesh Dr. Castillo on 06/05/2025 returning to the office for follow up. He is overall doing okay pain is well controlled except for when coughing. Feels like he still has to provide support to his abdomen when coughing which also causes him a good deal of pain. Reassured this is appropriate at this time and should improve with time, recommended resting and avoiding work as his job requires heavy lifting. Additionally he has been having some constipation and feeling bloated. States he has been taking Colace as well as Gas-X. He is passing bowel movements daily and passing gas. But on exam does appear mildly distended. I recommended he discontinue taking Gas-X as at this point it would be good for him to be passing as much gas as possible. His abdomen remains soft, normal to percussion. Otherwise incision sites appear to be healing well, he did the for the Steri-Strips on for which I took off in the office today. There was no concern for incision site infection. Recommended that he ambulate without heavy lifting as tolerated. He will return in 2 weeks for follow up. Some like him to stay out of work until then while he recovers. He should avoid heavy lifting greater than 20 lb until then. We discussed return precautions, If he has beginning to feel more bloated, unable to pass gas or stool Begins having nausea or vomiting then he should present to the emergency department. He can call with any questions or concerns Coding Level of Care Code Est Pt Level 4 (21097) Diagnoses History of ventral hernia repair Z98.890; Z87.19
[2025-06-13 13:06] VITALS: BP 116/66; PULSE 80; BMI 20.4
--- OUTSIDE RECORDS SUMMARY | 2025-06-13 17:00 | XMS_ITS | Clinical Summary ---
Author Organization [facility] Address [address] [address] Phone Care Team Providers Care Bar Captain Name Role Phone Dayton Ortiz MD Primary Care Provider [phone]- [phone] Medications tadalafiL (CIALIS) 20 MG tablet Take [...] PPO CIGNA PPO CIGNA PPO Care Teams Bar Captain Relationship Specialty Start Date End Date Dayton Ortiz MD [address] [place] [address] PCP - General Internal Medicine 07/04/24 Additional Source Comments The information contained in this document represents components of the legal health record. It is not the complete legal health record.[facility]
--- OUTSIDE RECORDS SUMMARY | 2025-06-13 17:00 | XMS_ITS | Data Portability ---
Author Organization [facility], [facility] Address [address] [place] [address] Care Team Providers Care Dough Sheeter Name Role Phone SALMAYENYKARY Primary Care Provider [phone] Assessment No assessment recorded. Plan of Treatment Reminders Order Date Submit Date Provider Last Modified By Organization Details Last Modified Time Details Appointments None recorded. Lab None recorded. Referral orthopedic spine surgeon referral - s/p low back twisting injury this morning while pulling water hose , very limited ROM, spasms with movement , decreased sensation in lower extremities 2023 024 [email or web address] [facility], [address], [address], [place], [address], 4 14:43:44 Procedures None recorded. Surgeries None recorded. Imaging XR, lumbosacral spine, 2 or 3 view 2023 024 [facility], [address] [place], [address], 4 10:29:41 Medication Orders cyclobenzap rine 10 mg tablet 2023 024 [facility] #[id number], [address] [place], [address], 4 09:33:50 naproxen 500 mg tablet 2023 024 [facility]arm[facility] #[id number], [address] [place], [address], 4 09:33:52 Patient TargetsNo targets recorded. Patient Instructions Encounter Date Encounter Id Patient Instructions Last Modified By Organization Details Last Modified Time 03/07/2024 [id number] back strain: car e instructions paulino Not [...] view No observ ation record ed. [email or web address] [facility] [address] [facility], [place], [address], 03/07/2024 10:59:53 Result Notes None recorded. Problems Name Problem SNOMED Code Status Onset Date Resolution Date Notes Provider Name and Address Organization Details Recorded Time Acute low back pain 903559649 Active 024 Renae Olivarez NP [address] [facility] [place], [address] , [place] - [facility] 03/07/2024 09:09:31 Lower back injury 885889461 Active 024 Renae Olivarez NP [address] [facility] [place], [address] , [place] - [facility] 03/07/2024 09:10:01 [...] mass index (BMI) Body weight Oxygen saturation Heart rate Pain severity - 0-10 verbal numeric rating [Score] - Reported Body temperature Respiratory rate Systolic And Diastolic Provider Name and Address Organization Details Last Updated DateTime 4 182.88 cm 21.7 kg/m2 05916.7 8 g 100 % 71 /min 10 97.8 [degF] 16 /min 125/83 mm[Hg] Bola HENDERSON [facility] 4 08:57:37 Social History Question Answer Notes LastModified by [employer] Details LastModified Time Tobacco Smoking Status Current Every Day Smoker Bola werner PA [facility] 03/07/2024 08:52:12 Have You Had A Flu Shot This Season? No Information not available 03/07/2024 Have You Recently Traveled Abroad? No Information not available 03/07/2024 Sex: Unknown Functional Status Question Answer Note LastModified by [employer] Details LastModified Time Do you use any [...] ICD10 Code Diagnosis IMO Codes Diagnosis Note [id number] [place] [address] [address] 03/07/2024 08:48:21 03/07/2024 09:43:29 Acute low back pain 819363048 M54.50 You are going to be treated [...] prescribe an antibiotic Thank you for using [facility] - please don't hesistate to call our office if you have any questions or concerns. Lower back injury 218982 005 S39.92XA Health Concerns Section Related Observation LastModified by Organization Detai ls LastModified Time None Recorded Concern Status LastModified by Organization Details LastModified Time None Recorded Advance Directives Directive None Recorded Payers Insurance Date Sequence Insurance Name Policy Number Policy Falk Covered Member ID Falk Member ID Guarantor Name 08/03/2024 SELECTIVE INSURANCE [facility] Elbert Puza 03/07/2024 GENERIC WORKERS COMP [id number] [facility] Elbert Puza 03/07/2024 GENERIC WORKER'S COMP (MOVED TO HOLD) [id number] [facility] Elbert Puza Notes Date Note Type Note Provider Name [...] Renae Olivarez NP [address] [place], [address], [place] - [facility] 03/07/2024 10:04:28
== END 2025-06-13 13:24 | disposition home or self-care (01) ==
LOC: HO.HGS 13:04
PROVIDERS: PCP Nurse Practitioner Family
DX: Z98.890 Other specified postprocedural states (principal); Z87.19 Personal history of other diseases of the digestive system
CPT/HCPCS: 99214

== ENCOUNTER 2025-06-27 12:49 | Outpatient (AMB) | payer OTHER, SELFPAY ==
--- NOTE | 2025-06-27 12:57 | A.OFFVIS_ITS ---
Vital Signs 06/27/25 13:04 Height 6 ft Weight 155 lb BMI 21.0 BP 113/76 Blood Pressure Location Rt brachial Position Sitting Pulse 69 Intake Visit Reasons: s/p lap ventral hernia w/mesh Intake Note: Patient here for follow-up last office visit with Rolando Cummins PA-C on 06-13-2025. Status post exploratory laparoscopy and repair of ventral hernia with mesh. Patient c/o: no concerns. Surgical incision healed well. Sarai longer taking rx pain meds. Asset Manager Required: No Accompanied by: Self / Same As Patient Allergies No Known Allergies Allergy (Verified 06/27/25 13:03) Medication List - Last Reconciled 06/27/25 by Royal Castillo MD docusate sodium (Colace) 100 mg PO BID multivitamin (Daily Multi-Vitamin tablet) 1 tab PO DAILY HPI Comments Details: 44-year-old male returns in follow-up after undergoing laparoscopic ventral hernia repair on 06/05/2025. He reports he is doing well. He denies abdominal pain fevers chills nausea or vomiting. Reports hernia repair feels ?solid?. He reports normal bowel and bladder habits are normal appetite. [facility] Surgical History (Updated 06/13/25 @ 13:28 by Rolando Cummins PA-C) History of ventral hernia repair (~06/05/25) History of hernia repair Social History Housing: House Patient Tobacco Use Status: Current everyday Tobacco user Tobacco use type: Cigarette Cigarettes Per Day: 12 Years Smoked: 15 e-Cigarette/Vaping Use: Never Used Second Hand Smoke Exposure: Yes Substance Use Type: Marijuana service: No Current occupational status: employed Current occupation: [employer] Current occupational exposures/hazards: No Cognitive needs: No Hearing needs: No Vision needs: No Review of Systems Const All systems reviewed & are unremarkable except as noted in HPI and below Physical Exam Vital Signs: Last Vital Signs Pulse 69 06/27/25 13:04 BP 113/76 06/27/25 13:04 BMI result Body Mass Index 21.0 Const General: cooperative, healthy appearing and comfortable Other: Soft nontender nondistended. Incisions healing well. No erythema edema or discharge. Small seroma associated with hernia site no evidence of recurrent hernia. Assessment & Plan Assessment & Plan (1) History of ventral hernia repair: Onset Date: ~06/05/25 Comment: exploratory laparoscopy and repair of ventral hernia with mesh- Dr. Jonathan PAIGE FACS Code(s): Z98.890 - Other specified postprocedural states; Z87.19 - Personal history of other diseases of the digestive system Category: Medical Plan: I told the patient felt he was doing well and he agreed. He can follow up with us on a p.r.n. basis and he was encouraged to contact us should he have any questions or problems. He said he was happy with that plan. Coding Level of Care Code Est Pt Level 3 (65220) Global (86030) Diagnoses History of ventral hernia repair Z98.890; Z87.19 Time Spent (min) 30 Comment Record review patient visit and coordination of care time
[2025-06-27 13:04] VITALS: BP 113/76; PULSE 69; BMI 21.0
--- OUTSIDE RECORDS SUMMARY | 2025-06-27 16:42 | XMS_ITS | Data Portability ---
Author Organization [facility], [facility] Address [address] [place] [address] Care Team Providers Care Solar Installer Technician Name Role Phone SALMAYENYKARY Primary Care Provider [...] sensation in lower extremities 2023 024 [email or web address] [facility], [address], [place], [address], 4 14:43:44 Procedures None recorded. Surgeries None recorded. Imaging XR, lumbosacral spine, 2 or 3 view 2023 024 [facility], [address] [place], [address], 4 10:29:41 Medication Orders cyclobenzap rine 10 mg tablet 2023 024 [facility]acy #0084, [address] [place], [address], 4 09:33:50 naproxen 500 mg tablet 2023 024 [facility] #0084, [address] [place], [address], 4 09:33:52 Patient TargetsNo targets recorded. Patient Instructions Encounter Date Encounter Id Patient Instructions Last Modified By Organization Details Last Modified Time 03/07/2024 [id number] back strain: car e instructions paulino Not [...] view No observ ation record ed. [email or web address] [address] [facility], [place], [address], 03/07/2024 10:59:53 Result Notes None recorded. Problems Name Problem SNOMED Code Status Onset Date Resolution Date Notes Provider Name and Address Organization Details Recorded Time Acute low back pain 237602561 Active 024 Renae Olivarez NP [address] [facility] [place], [address] , [place] - [facility] 03/07/2024 09:09:31 Lower back injury 626043597 Active 024 Renae Olivarez NP [address] [facility] [place] [place], [address] , [place] - [facility] 03/07/2024 09:10:01 [...] Updated DateTime 4 182.88 cm 21.7 kg/m2 45069.7 8 g 100 % 71 /min 10 97.8 [degF] 16 /min 125/83 mm[Hg] Bola HENDERSON [facility] 4 08:57:37 Social History Question Answer Notes LastModified by [employer] Details LastModified Time Tobacco Smoking Status Current Every Day Smoker Bola werner PA [facility] 03/07/2024 08:52:12 Have You Had A Flu Shot This Season? No Information not available 03/07/2024 Have You Recently Traveled Abroad? No Information not available 03/07/2024 Sex: Unknown Functional Status Question Answer Note LastModified by [employer] Details LastModified Time Do you use any [...] ICD10 Code Diagnosis IMO Codes Diagnosis Note [id number] Renae Olivarez [place] [address] [address] 03/07/2024 08:48:21 03/07/2024 09:43:29 Acute low back pain 286241525 M54.50 You are going to be treated [...] prescribe an antibiotic Thank you for using [facility] - please don't hesistate to call our office if you have any questions or concerns. Lower back injury 236913 005 S39.92XA Health Concerns Section Related Observation LastModified by Organization Detai ls LastModified Time None Recorded Concern Status LastModified by Organization Details LastModified Time None Recorded Advance Directives Directive None Recorded Payers Insurance Date Sequence Insurance Name Policy Number Policy Falk Covered Member ID Falk Member ID Guarantor Name 08/03/2024 SELECTIVE INSURANCE [facility] Elbert Puza 03/07/2024 GENER[employer] WORK[employer] COMP [id number] [facility] Elbert [facility] 03/07/2024 GENERIC WORKER'S COMP (MOVED TO HOLD) [id number] [facility] Notes Date Note [...] Renae Olivarez NP [address] [place], [address], [place] - [facility] 03/07/2024 10:04:28
--- OUTSIDE RECORDS SUMMARY | 2025-06-27 16:42 | XMS_ITS | Clinical Summary ---
Author Organization [facility] Address [address] [address] Phone Care Team Providers Care Legal Research Analyst Name Role Phone Dayton Ortiz MD Primary Care Provider +1- [phone] Medications tadalafiL (CIALIS) 20 MG tablet Take [...] Devices Not on file Insurance [employer] PPO Member Subscriber Plan / Payer ( fective 2022-Present) Name:Elbert Espana Relation to Subscriber:Self Name:Elbert Espana Payer ID:[id number] ([facility] Type:PPO Address: [place] [address] CIGNA PPO Member Subscriber Plan / Payer (Ef fective 2022-Present) Name:Elbert Espana Relation to Subscriber:Self Name:Elbert Espana Payer ID:[id number] ([facility]) Type:PPO Address: [place] [address] CIGNA PPO Member Subscriber Plan / Payer ( fective 2022-Present) Name:Malorie Elbert Relation to Subscriber:Self Name:JenaNayeli richardnt Payer ID:[id number] ([facility]) Type:PPO Address: [address] [place] [address] CIGNA PPO Member Subscriber Plan / Payer ( fective 2022-Present) Name:Elbert Espana Relation to Subscriber:Self Name:Elbert Espana Payer ID:[id number] ([facility]) Type:PPO Address: [address] [place] [address] CIGNA PPO Member Subscriber Plan / Payer ( fective 2022-Present) Name:Elbert Espana Relation to Subscriber:Self Name:Malorie Elbert Payer ID:[id number] ([facility]) Type:PPO Address: [address] [place] [address] CIGNA PPO CIGNA PPO Care Teams Legal Research Analyst Relationship Specialty Start Date End Date Dayton Ortiz MD [address] [place] [address] PCP - General Internal Medicine 07/04/24 Additional Source Comments The information contained in this document represents components of the legal health record. It is not the complete legal health record.[facility]
== END 2025-06-27 13:08 | disposition home or self-care (01) ==
LOC: HO.HGS 12:50
PROVIDERS: PCP Nurse Practitioner Family; Visit Provider Surgery
DX: Z98.890 Other specified postprocedural states (principal); Z87.19 Personal history of other diseases of the digestive system
CPT/HCPCS: 99213; 99499